=== PATIENT | male | born 1995 | race Caucasian/White ===

== ENCOUNTER 2017-06-16 12:56 | Emergency (ER) | payer OTHER ==
[~2017-06-16 12:56] MED LIST: ALBINS INH; ALBUAER2 INH; CLR10 PO; EPP3/2 IM; PRLSR20 PO; SNG10 PO
[2017-06-16 13:00] VITALS: TEMP 36.9; Ht 170.2 cm
[2017-06-16] MEDS ORDERED: OXYCODONE/ACETAMINOPHEN 5-325 TAB PO STA (13:26)
--- NOTE | 2017-06-16 13:35 | EMERGENCY ROOM VISIT NOTE ---
History First contact with patient: 13:15 Chief Complaint: FALL Stated Complaint: FELL OFF 8 FT LADDER History of Present Illness The patient is a 22 year old male who presents to the Emergency Room with complaints of a fall from the top rung of an 8 foot ladder. The patient was working on his garage door when he lost his balance falling onto his right side. He also got his right mid hawthorne tangled in one of the rungs of the latter. He denies any neck pain or back pain. He denies any chest pain or difficulty breathing. No abdominal pain. He did not hit his head. He is experiencing most of the pain in his right forearm, right hand, right hawthorne and right ankle. He took 3 ibuprofen prior to arrival. Review of Systems 10 system review performed and negative unless noted in HPI or below Past Medical/Surgical History Medical Problems: (1) Allergic rhinitis (2) Asthma Family History Diabetes mellitus GRANDMOTHER FH: colon cancer GRANDFATHER FH: heart disease GRANDFATHER Social History Smoking Status: Never Smoker Alcohol Use: none Drug Use: none Marital Status: single Housing Status: lives with family Occupation Status: student Current/Historical Medications Scheduled Epinephrine (Epipen), 0.3 MG IM UD Loratadine (Claritin), 10 MG PO DAILY Montelukast Sodium (Singulair), 10 MG PO HS Omeprazole (Prilosec), 20 MG PO DAILY Scheduled PRN Albuterol Hfa (Ventolin Hfa), 2 PUFFS INH Q4 PRN for SOB/Wheezing Albuterol Sulf (Proventil 0.083% 2.5MG/3ML), 2.5 MG INH Q4 PRN for SOB/Wheezing Oxycodone/Acetaminophen 5MG/325MG (Percocet 5MG/325MG), 1-2 TABS PO Q4H PRN for Pain Physical Exam Vital Signs Date Time Temp Pulse Resp B/P (MAP) Pulse Ox O2 Delivery O2 Flow Rate FiO2 06/16/17 15:31 55 18 106/55 95 Room Air 06/16/17 13:00 36.9 82 20 130/83 99 Room Air Physical Exam VITALS: Vitals are noted on the nurse's note and reviewed by myself. Vital signs stable. GENERAL: 22-year-old male, in moderate discomfort,, SKIN: Few abrasions noted to the right mid forearm. Superficial abrasions to the right second, third and fourth digit. No active bleeding. HEAD: Normocephalic atraumatic. EYES: Pupils equal round and reactive to light and accommodation. Conjunctivae without injection, sclerae without icterus. Extraocular movements intact. NECK: Full range of motion of the neck. Cervical spine is nontender. No JVD. HEART: Regular rate and rhythm without murmurs gallops or rubs. LUNGS: Clear to auscultation bilaterally without wheezes, rales or rhonchi. No accessory muscle use. No tenderness over the thorax MUSCULOSKELETAL: Tenderness to palpation noted over the volar aspect of the right forearm. [employer] strength of the right hand is 2/5. Biceps strength 5/5 bilaterally. Tenderness to palpation over the right mid hawthorne with mild edema noted. Tenderness over the right lateral malleolus. No tenderness over the rest of the foot. No tenderness elicited over the spinous processes throughout the spine. Full range of motion of the knees. NEURO: Patient was alert and oriented to person place and time. Normal sensation to touch. No focal neurological deficits. Medical Decision & Procedures ER Provider Diagnostic Interpretation: RIGHT ANKLE 3 VIEWS CLINICAL HISTORY: Right ankle pain. Fall. FINDINGS: 3 views of the right ankle are obtained. No prior studies are available for comparison at the time of dictation. The skeletal structures are well mineralized. No fracture is seen. The ankle mortise is intact. There is a tiny plantar calcaneal enthesophyte. No joint effusion is identified. Mild soft tissue swelling is observed. IMPRESSION: Mild soft tissue swelling with no radiographic evidence of right ankle fracture. Electronically signed by: Cm Spear M.D. 06/16/2017 2:37 PM Dictated Date/Time: 06/16/2017 2:36 PM The status of this report is Signed. Draft = Not yet reviewed or approved by Radiologist. Signed = Reviewed and approved by Radiologist. <AttendingPhy></AttendingPhy> <FamilyPhy>Oseas Santiago M.D. (MEDICAL)</ FamilyPhy> <PrimaryPhy>Oseas Santiago M.D. (MEDICAL)</PrimaryPhy> <UnitNumber> [id number]</UnitNumber> <VisitNumber>[id number]</VisitNumber> <PatientName> SALLIE NAVA III</PatientName> <DateOfBirth>1995</DateOfBirth> < Location>[facility]</Location> <ServiceDate>06/16/17</ServiceDate> <MNE>ESINDI</MNE> <OrderingPhy>Jluis Татьяна Oseas ASHTON</OrderingPhy> <OrderingPhyMNE>f rep ord dr castillo </OrderingPhyMNE> <DictatingPhyMNE>f rep dict dr castillo</DictatingPhyMNE> < CCListMNE>f rep ct mne</CCListMNE> <AdmittingPhyMNE>f pt admit dr castillo</ AdmittingPhyMNE> <AttendingPhyMNE>f pt attend dr castillo</AttendingPhyMNE> <ConsultingPhyMNE>f pt consult dr castillo</ConsultingPhyMNE> <FamilyPhyMNE>f pt fam dr castillo</FamilyPhyMNE> <OtherPhyMNE>f pt other dr castillo</OtherPhyMNE> < PrimaryPhyMNE>f pt prim care dr castillo</PrimaryPhyMNE> <ReferringPhyMNE>f pt referring dr castillo</ReferringPhyMNE> R FOREARM 2 VIEWS ROUTINE CLINICAL HISTORY: Right forearm pain status post trauma COMPARISON: None. DISCUSSION: 2 views reveal no fractures or dislocations. IMPRESSION: No fractures identified. Electronically signed by: David Yeboah M.D. 06/16/2017 2:34 PM Dictated Date/Time: 06/16/2017 2:34 PM The status of this report is Signed. Draft = Not yet reviewed or approved by Radiologist. Signed = Reviewed and approved by Radiologist. <AttendingPhy></AttendingPhy> <FamilyPhy>Oseas Santiago M.D. (MEDICAL)</ FamilyPhy> <PrimaryPhy>Oseas Santiago M.D. (MEDICAL)</PrimaryPhy> <UnitNumber> [id number]</UnitNumber> <VisitNumber>[id number]</VisitNumber> <PatientName> SALLIE NAVA III</PatientName> <DateOfBirth>1995</DateOfBirth> < Location>[facility]</Location> <ServiceDate>06/16/17</ServiceDate> <MNE>ESINDI</MNE> <OrderingPhy>Татьяна Bazzi PA-C</OrderingPhy> <OrderingPhyMNE>f rep ord dr castillo </OrderingPhyMNE> <DictatingPhyMNE>f rep dict dr castillo</DictatingPhyMNE> < CCListMNE>f rep ct mne</CCListMNE> <AdmittingPhyMNE>f pt admit dr castillo</ AdmittingPhyMNE> <AttendingPhyMNE>f pt attend dr castillo</AttendingPhyMNE> <ConsultingPhyMNE>f pt consult dr castillo</ConsultingPhyMNE> <FamilyPhyMNE>f pt fam dr castillo</FamilyPhyMNE> <OtherPhyMNE>f pt other dr castillo</OtherPhyMNE> < PrimaryPhyMNE>f pt prim care dr castillo</PrimaryPhyMNE> <ReferringPhyMNE>f pt referring dr castillo</ReferringPhyMNE> R HAND MIN 3 VIEWS ROUTINE CLINICAL HISTORY: R hand pain TRAUMA COMPARISON: None. DISCUSSION: The study is limited from a technical standpoint in the patient was unable to straighten his fingers. No fractures or dislocations are visualized on the provided images. IMPRESSION: Technically limited study with the patient's second through fourth fingers in flexion. Clinical correlation is advocated to determine whether this is a fixed deformity. No fractures or dislocations are visualized. Electronically signed by: David Yeboah M.D. 06/16/2017 2:34 PM Dictated Date/Time: 06/16/2017 2:32 PM The status of this report is Signed. Draft = Not yet reviewed or approved by Radiologist. Signed = Reviewed and approved by Radiologist. RIGHT TIBIA AND FIBULA 2 VIEWS CLINICAL HISTORY: Right leg injury. FINDINGS: AP and lateral views of the right tibia and fibula are correlated with ankle radiographs performed concurrently on 06/16/2017. The skeletal structures are well mineralized. There is no radiographic evidence of right tibial or fibular fracture. The knee and ankle joints are grossly maintained. Mild soft tissue swelling is observed. IMPRESSION: There is no radiographic evidence of right tibial or fibular fracture. Electronically signed by: Cm Spear M.D. 06/16/2017 2:40 PM Dictated Date/Time: 06/16/2017 2:39 PM The status of this report is Signed. Draft = Not yet reviewed or approved by Radiologist. Signed = Reviewed and approved by Radiologist. <AttendingPhy></AttendingPhy> <FamilyPhy>Oseas Santiago M.D. (MEDICAL)</ FamilyPhy> <PrimaryPhy>Oseas Santiago M.D. (MEDICAL)</PrimaryPhy> <UnitNumber> [id number]</UnitNumber> <VisitNumber>[id number]</VisitNumber> <PatientName> BRANDYSALLIE III</PatientName> <DateOfBirth>1995</DateOfBirth> < Location>[facility]</Location> <ServiceDate>06/16/17</ServiceDate> <MNE>ESINDI</MNE> <OrderingPhy>Татьяна Bazzi PA-C</OrderingPhy> <OrderingPhyMNE>f rep ord dr castillo </OrderingPhyMNE> <DictatingPhyMNE>f rep dict dr castillo</DictatingPhyMNE> < CCListMNE>f rep ct mne</CCListMNE> <AdmittingPhyMNE>f pt admit dr castillo</ AdmittingPhyMNE> <AttendingPhyMNE>f pt attend dr castillo</AttendingPhyMNE> Medications Administered Medications (Trade) Dose Ordered Sig/Reese Route Start Time Stop Time Status Last Admin Dose Admin Oxycodone/ Acetaminophen (Percocet 5-325mg Tab) 2 tab NOW STAT PO 06/16/17 13:26 06/16/17 13:29 DC 06/16/17 13:37 10 TAB ED Course Patient was seen and examined Vital signs including blood pressure were reviewed medications list was verified with patient The patient was given 2 Percocet for pain Imaging was performed and reviewed Upon reassessment, the patient's pain was improved. We discussed the results of his workup. He voiced understanding. The wounds on the patient's fingers were thoroughly cleansed and bandaged He was given a gel ankle splint I reviewed discharge instructions the patient. They voiced understanding and had no further questions. Medical Decision Differential diagnosis: Fracture, contusion, dislocation, abrasions, muscle strain, sprain, intra-abdominal or intrathoracic injury This patient is a 22-year-old male that presents emergency department after a fall from an 8 foot ladder onto his right side. Most of his pain was in his right arm and right leg. He did not have any neck or back pain. He did not hit his head. Imaging was performed. No acute fractures were identified. He did have soft tissue swelling of the ankle. The patient was given a gel ankle splint. He was offered crutches, but did not think that he could use them with his right hand pain. He does have crutches at home that he can use if needed. The patient was given a short course of narcotic pain medication. He will apply ice to the affected areas. He was given 2 days off of work. It was recommended that he follow-up with his primary care physician within one week for recheck. He agrees to return here with any new or worsening symptoms Blood Pressure Screening Patient's blood pressure: Elevated blood pressure Blood pressure disposition: Elevated BP felt to be situational Impression Primary Impression: Fall Additional Impression: Contusion of multiple sites Departure Information Dispostion Home / Self-Care Condition GOOD Prescriptions Oxycodone/Acetaminophen 5MG/325MG (PERCOCET 5MG/325MG) Tab 1-2 TABS PO Q4H Y for Pain, #12 TAB For Initial Treatment Prov: Татьяна Bazzi PA-C 06/16/17 Referrals Oseas Santiago M.D. (MEDICAL) (PCP) Patient Instructions My [facility] Additional Instructions You were evaluated in the emergency department today for a fall off of a ladder. It appears that you have contusions of your arm and leg. Please wear the gel ankle splint for support of your ankle for the next 5 days. This may be removed while sleeping. Ibuprofen 600 mg every 6 hours Percocet 1-2 tabs every 4 hours for severe pain. Do not drink alcohol or drive while taking this medication. This may be taken with ibuprofen, but avoid Tylenol. Please follow-up with your primary care physician within the next 3-5 days for a recheck. Do not drive until you have regained strength in your right hand. Return to the emergency department if you have any of the following symptoms: -Severe pain -Difficulty breathing -Pain in your chest or abdomen Work Instructions Return To Work: 2 days Problem Qual[employer]
[2017-06-16] MEDS ORDERED: MONT1TAB3 PO (13:49)
[2017-06-16] MEDS ORDERED: VNTHFA/IN INH (13:49)
[2017-06-16] MEDS ORDERED: ALBINS/ INH (13:49)
--- NOTE | 2017-06-16 14:35 | DIAGNOSTIC IMAGING REPORT ---
R HAND MIN 3 VIEWS ROUTINE CLINICAL HISTORY: R hand pain TRAUMA COMPARISON: None. DISCUSSION: The study is limited from a technical standpoint in the patient was unable to straighten his fingers. No fractures or dislocations are visualized on the provided images. IMPRESSION: Technically limited study with the patient's second through fourth fingers in flexion. Clinical correlation is advocated to determine whether this is a fixed deformity. No fractures or dislocations are visualized. Electronically signed by: David Yeboah M.D. 06/16/2017 2:34 PM Dictated Date/Time: 06/16/2017 2:32 PM
--- NOTE | 2017-06-16 14:35 | DIAGNOSTIC IMAGING REPORT ---
R FOREARM 2 VIEWS ROUTINE CLINICAL HISTORY: Right forearm pain status post trauma COMPARISON: None. DISCUSSION: 2 views reveal no fractures or dislocations. IMPRESSION: No fractures identified. Electronically signed by: David Yeboah M.D. 06/16/2017 2:34 PM Dictated Date/Time: 06/16/2017 2:34 PM
--- NOTE | 2017-06-16 14:38 | DIAGNOSTIC IMAGING REPORT ---
RIGHT ANKLE 3 VIEWS CLINICAL HISTORY: Right ankle pain. Fall. FINDINGS: 3 views of the right ankle are obtained. No prior studies are available for comparison at the time of dictation. The skeletal structures are well mineralized. No fracture is seen. The ankle mortise is intact. There is a tiny plantar calcaneal enthesophyte. No joint effusion is identified. Mild soft tissue swelling is observed. IMPRESSION: Mild soft tissue swelling with no radiographic evidence of right ankle fracture. Electronically signed by: Cm Spear M.D. 06/16/2017 2:37 PM Dictated Date/Time: 06/16/2017 2:36 PM
--- NOTE | 2017-06-16 14:41 | DIAGNOSTIC IMAGING REPORT ---
RIGHT TIBIA AND FIBULA 2 VIEWS CLINICAL HISTORY: Right leg injury. FINDINGS: AP and lateral views of the right tibia and fibula are correlated with ankle radiographs performed concurrently on 06/16/2017. The skeletal structures are well mineralized. There is no radiographic evidence of right tibial or fibular fracture. The knee and ankle joints are grossly maintained. Mild soft tissue swelling is observed. IMPRESSION: There is no radiographic evidence of right tibial or fibular fracture. Electronically signed by: Cm Spear M.D. 06/16/2017 2:40 PM Dictated Date/Time: 06/16/2017 2:39 PM
[2017-06-16] MEDS ORDERED: OXYC-57 PO (15:18)
[2017-06-16 15:31] VITALS: BP 106/55; PULSE 55; O2SAT 95
== END 2017-06-16 15:35 | disposition home or self-care (01) ==
LOC: C.EDB 12:57 → C.EDA 15:35
DX: S99.911A Unspecified injury of right ankle, initial encounter (principal); S50.811A Abrasion of right forearm, initial encounter; W11.XXXA Fall on and from ladder, initial encounter; Y92.009 Unspecified place in unspecified non-institutional (private) residence as the place of occurrence of the external cause; J45.909 Unspecified asthma, uncomplicated; Z83.3 Family history of diabetes mellitus; Z80.0 Family history of malignant neoplasm of digestive organs; Z79.899 Other long term (current) drug therapy